=== PATIENT | male | born 1965 | race Caucasian/White ===

== ENCOUNTER 2022-07-05 08:17 | Inpatient (IN) ==
--- NOTE | 2022-07-05 08:25 | Emergency Department Note ---
Impression & Plan Fatigue, Breathlessness, Pleural effusion ED Provider Note Provider: Meet Godfrey MD DATE OF SERVICE: 07/05/2022 CHIEF COMPLAINT: Shortness of breath HISTORY OF PRESENT ILLNESS: Patient is a 56-year-old gentleman history of hyperlipidemia and diabetes presenting today stating that He is feeling much more fatigued and worn out. States he had a headache and this morning states he woke up and was still feeling unwell and having some wheezing. States lying in bed there are times where he could not breathe as well as normal not able to take a good deep breath and he feels congested. States he did have significant bout about 8 or 10 years ago of whooping cough but does not significantly coughing now. Some sinus drainage. Denies abdominal symptoms such as nausea vomiting or abdominal pain. Reports occasionally is been having little pain in his right mid to lower back into the right hip with some burning into the right thigh at times. 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 No recent travel. No leg swelling. No history of allergy issues, asthma, or recent travel. States his diabetes is well controlled on Trulicity. States symptoms now have been improving. Went to bed last night was not feeling too bad. No pleuritic chest pain but states does not feel like he can quite get a full deep breath. Denies severe myalgias or fever. No trauma reported. PAST MEDICAL HISTORY: As noted above MEDICATIONS: Reviewed home medications SOCIAL HISTORY: Works as a medical territory manager PHYSICAL EXAM: GENERAL: alert and oriented in no acute distress seated in the room Head: normocephalic and atraumatic EYES: No injection, discharge or icterus. NECK: Trachea midline. ENT: Mucous membranes pink and moist. LUNGS: Airway patent. No retractions. Breath sounds with very faint scattered e xpiratory wheeze HEART: Regular rate and rhythm. No chest wall tenderness ABDOMEN: Soft and non-tender, without guarding or rebound. SKIN: Acyanotic, warm, dry, without rashes EXTREMITIES: Without swelling, tenderness or deformity NEUROLOGICAL: No focal deficits. No aphasia. No facial droop or slurred speech. Ambulatory. EK bpm normal sinus rhythm. No PVC or PAC. Limited baseline artifact in V1. No acute ST segment elevation or depression noted with a QTc of 477. CONTINUOUS CARDIAC MONITORING: was ordered and showed a heart rate of 90s-110s bpm in normal sinus rhythm to sinus tachycardia Patient's laboratory studies and imaging reviewed. Differential includes Reactive airway disease, pneumonia, pneumothorax, COPD, CHF, infections, cardiac ischemia, pulmonary embolism, musculoskeletal, gastrointestinal, as well as other pathologies. IMPRESSION/MEDICAL DECISION MAKING: Planes of feeling some fatigue yesterday and then onset of shortness of breath earlier today. Headache yesterday but not really today. Denies swelling or recent travel. Not significantly hypoxic here. No significant calf tenderness and lower suspicion for DVT and VTE. Sounds infectious in nature. Slight wheezing given a DuoNeb. Basic blood work checked including COVID test in addition to EKG and troponin. Seems less likely to be cardiac in nature not having chest pain. Benign abdomen on exam and doubt acute intra-abdominal pathology. No significant leg swelling or history of CHF reported by the patient. Chest x-ray by my review and radiology does question some possible pulmonary edema versus interstitial pneumonia. Present history seems a bit more infectious in nature but blood work here without significant anemia or leukocytosis noted. No significant differential shift noted. No significant renal dysfunction or severe electrolyte abnormality noted with minimally elevated glucose likely related to his underlying diabetes. No signs of significant tendinitis. High sensitive troponin does return mildly elevated at 21.3. Discussed these findings with the patient. I did not give any significant risk factors for PE at this point. CTA of the chest without evidence of PE but some small effusions again question some component of CHF. Do have some suspicion given the x-ray findings this could represent more of a developing CHF rather than infectious in nature. Again has been working somewhat fervently at 2 jobs according to him. Does report some increased fatigue and head pressure and evaluation of breathing is again trending better. Denies any chest pain. Yest erday at work again he had to sit down several times that he just felt too fatigued. EKG without acute STEMI but no comparisons for prior possible septal infarct noted. Troponin just above normal. Question if he is got a chronic level here versus developing a little bit of left-sided heart failure. In discussion with him as he is feeling quite fatigued and with the x-ray findings discussed with the hospitalist observation. Delta troponin ordered and returned slightly low at 17 is against acute cardiac injury. DIAGNOSIS: Shortness of breath, fatigue, pleural effusions DISPOSITION: Evaluated by the hospitalist Patient was agreeable with this plan. Past Med/Surg History Medical History DM2 (diabetes mellitus, type 2) Fatigue HLD (hyperlipidemia) Morbid obesity with BMI of 50.0-59.9, adult No pertinent past medical history Shortness of breath Surgical History No pertinent past surgical history Social History Smoking Status: Never smoker Second Hand Exposure: No; Do You Dip or Chew Tobacco: No; Tobacco Cessation Education Requested by Patient: No Hx Alcohol Use: Yes Alcohol type: beer Hx Substance Use: No Preferred Language: Kyrgyz Communication Ability: Effective Electronic Test Technician Required: No Beliefs That Will Affect Care: None Current Living Situation: Alone current occupational status: employed Other Information That Helps Us Care for You: No Feels Safe at Home: No Is there a partner from a previous relationship who is making you feel unsafe now?: No Any Concerns about Your Family Situation: No Would You Like to Speak to Someone About Your Situation: No Safety Concerns: Feels Safe At This Time Assistive Devices: Glasses Allergies Allergies Allergy/AdvReac Type Severity Reaction Status Date / Time kiwi Allergy Mild Mouth Verified 07/05/22 10:50 Itchiness Home Meds Home Medications Medication Instructions Recorded Confirmed acetaminophen 500 mg tablet 500 mg PO Q6H PRN Pain 03/04/20 07/05/22 (Tylenol Extra Strength) atorvastatin 20 mg tablet 20 mg PO HS 07/05/22 07/05/22 dulaglutide 1.5 mg/0.5 mL 1.5 mg subcut Q7D 07/05/22 07/05/22 subcutaneous pen injector (Trulicity) metformin 500 mg tablet,extended 1,000 mg PO BIDWMEAL 07/05/22 07/05/22 release 24 hr naproxen sodium 220 mg tablet 220 mg PO Q12H PRN Pain 07/05/22 07/05/22 (Aleve) Results & Data (ED) Vital Signs Vital Signs - 24 hr 07/05/22 08:20 07/05/22 08:57 07/05/22 09:19 Temperature 36.3 C L Temperature Source Temporal Artery Scan Pulse Rate 105 H 98 H Pulse Rate [Apical] 99 H Pulse Rate from SpO2 Sensor Pulse Rhythm Regular Pulse Strength Normal Respiratory Rate 22 16 Respiratory Effort / Characteristics Non-Labored Spontaneous Non-Labored Spontaneous Respiratory Depth Normal Respiratory Pattern Regular Blood Pressure 139/90 Blood Pressure Mean 106 Blood Pressure Position Sitting Pulse Oximetry 94 99 Oxygen Delivery Method Room Air Room Air Sepsis Recent Fever Within 48 Hours No Sepsis New/Unexplained Change in Mental Status No Sepsis Action Taken by Nursing No Action Required 07/05/22 11:04 Temperature Temperature Source Pulse Rate 108 H Pulse Rate [Apical] Pulse Rate from SpO2 Sensor 107 H Pulse Rhythm Pulse Strength Respiratory Rate 20 Respiratory Effort / Characteristics Respiratory Depth Respiratory Pattern Blood Pressure 120/83 Blood Pressure Mean 95 Blood Pressure Position Pulse Oximetry 94 Oxygen Delivery Method Room Air Sepsis Recent Fever Within 48 Hours Sepsis New/Unexplained Change in Mental Status Sepsis Action Taken by Nursing Laboratory Data 07/05/22 09:02 07/05/22 09:02 Lab Results 07/05/22 07/05/22 07/05/22 Range/Units 09:02 09:02 09:02 WBC 6.82 (4.8-10.8) K/ul RBC 4.79 (4.70-6.10) M/uL Hgb 14.2 (14.0-18.0) g/dl Hct 42.3 (42.0-52.0) % MCV 88.3 (80.0-100.0) fL MCH 29.6 (25.0-34.0) pg MCHC 33.6 (32.0-36.0) g/dL RDW Std Deviation 41.6 (36.4-46.3) fL RDW Coeff of Karlos 12.8 (11.5-14.5) % Plt Count 211 (130-400) K/uL MPV 10.1 (9.4-12.4) fL Immature Gran % (Auto) 0.4 % Neut % (Auto) 49.6 % Lymph % (Auto) 40.8 % [place] % (Auto) 6.9 % Eos % (Auto) 1.6 % Baso % (Auto) 0.7 % Neut # (Auto) 3.38 (1.40-6.50) K/uL Lymph # (Auto) 2.78 (1.2-3.4) K/uL [place] # (Auto) 0.47 (0.11-0.59) K/uL Eos # (Auto) 0.11 (0-0.50) K/uL Baso # (Auto) 0.05 (0-0.2) K/uL Immature Gran # (Auto) 0.03 (0.01-0.20) K/uL Sodium 138 (136-145) mmol/L Potassium 3.7 (3.5-5.1) mmol/L Chloride 104 (98-107) mmol/L Carbon Dioxide 27 (21-32) mmol/L Anion Gap 7 (3-11) BUN 13 (6-23) mg/dl Creatinine 0.50 L (0.6-1.4) mg/dl Est Cr Clr Drug Dosing 200.9 ml/min Est GFR ( Amer) 141.4 ml/min Est GFR (Non-Af Amer) 122.0 ml/min BUN/Creatinine Ratio 26.0 H (10-20) Glucose 129 H (70-99(Fasting)) mg/dl Calcium 8.8 (8.6-10.3) mg/dl Magnesium 1.9 (1.7-2.4) mg/dl Total Bilirubin 0.8 (0.2-1.0) mg/dl AST 16 (13-39) U/L ALT 16 (7-52) U/L Alkaline Phosphatase 59 (34-104) U/L Troponin I High Sens 21.3 H (0-20) pg/ml Total Protein 7.1 (6.0-8.3) gm/dl Albumin 4.3 (3.4-5.0) gm/dl Globulin 2.8 (2.5-4.0) gm/dl Albumin/Globulin Ratio 1.5 (0.9-2) SARS-CoV-2 (PCR) NEGATIVE (Negative) Influenza Type A (PCR) Negative (Neg) Influenza Type B (PCR) Negative (Neg) RSV (RT-PCR) Negative (Neg) Administered Medications Discontinued Medications Albuterol (Albut/Ipratrop 3mg/0.5mg Neb 3 Ml Vial) 12 ml NEB ONE ONE; Protocol Stop: 07/05/22 08:37 Last Admin: 07/05/22 08:57 Dose: 12 ml Documented By: JBHenrietta Furosemide (Furosemide Inj 20 Mg/2 Ml Vial) 20 mg IV ONE ONE Stop: 07/05/22 13:16 Last Admin: 07/05/22 13:27 Dose: 20 mg Documented By: NICK Ioversol (Optiray 320 500ml) 114 ml IV ONCE ONE Stop: 07/05/22 11:51 Last Admin: 07/05/22 11:53 Dose: 114 ml Documented By: MARGARET Imaging Data Radiologist's Impression: Chest X-Ray 07/05/22 08:25 XR chest 1V portable HISTORY: 56 years-old Male Dyspnea acute shortness of breath COMPARISON: 09/20/2007 TECHNIQUE: AP view of the chest FINDINGS: Cardiac silhouette is enlarged. Pulmonary vascular congestion with interstitial coarsening. No pneumothorax or large pleural effusion. Degenerative changes of the shoulders and spine. Left shoulder rotator cuff calcific tendinosis. IMPRESSION: Cardiomegaly with pulmonary vascular congestion and reticular interstitial opacities suggestive of pulmonary edema. Interstitial pneumonia could appear similarly. ACT 112: Negative or not required by law. The above report was generated using voice recognition software. It may contain grammatical, syntax or spelling errors. Electronically signed by: Irvin Dong M.D. 07/05/2022 9:00 AM Chest CTA 07/05/22 10:43 CT angio chest PE protocol CT DOSE: 976.63 mGy.cm HISTORY: 56 years-old Male with PE, SOB, tachy, cxr ?fluid. Acute shortness of breath TECHNIQUE: Multiple CTA images of the chest were obtained after the intravenous administration of 114 ml Optiray. Coronal and sagittal MIPS were obtained from the axial data set and were submitted for review. All measurements were obtained according to NASCET criteria. A dose lowering technique was utilized adhering to the principles of ALARA. COMPARISON: Chest radiograph of same day FINDINGS: CTA: Moderate cardiomegaly without pericardial effusion. No thoracic aortic aneurysm or dissection. Patency of the imaged great vessels. No pulmonary emboli identified. CT CHEST: No thyroid nodule or lymphadenopathy. Small left greater than right pleural effusions. No pneumothorax. Intralobular and bronchial wall thickening. Mild dependent bibasilar consolidation. No suspicious pulmonary nodules or masses. Mild nonspecific mid to distal esophageal wall thickening. The liver appears prominent in size. Unremarkable soft tissues. No acute fracture. IMPRESSION: 1. Cardiomegaly with interstitial pulmonary edema. 2. Small pleural effusions with dependent bibasilar consolidation suggestive of compressive atelectasis. 3. No pulmonary emboli identified. ACT 112: Negative or not required by law. The above report was generated using voice recognition software. It may contain grammatical, syntax or spelling errors. Electronically signed by: Irvin Dong M.D. 07/05/2022 12:28 PM Discharge Plan Visit Data Chief Complaint: Shortness of Breath/Dyspnea Stated Complaint: SOB ED Provider: Meet Godfrey Discharge Problem: Fatigue, Breathlessness, Pleural effusion Patient Disposition: Admitted As Inpatient Discharge Instructions Interventions: ED Discharge Assessment Last Done: 07/05/22 15:00
[2022-07-05] MEDS ORDERED: ALBUT/IPRATROP 3MG/0.5MG NEB 3 ML VIAL NEB ONE (08:36)
--- NOTE | 2022-07-05 09:01 | XRay Report ---
XR chest 1V portable HISTORY: 56 years-old Male Dyspnea acute shortness of breath COMPARISON: 09/20/2007 TECHNIQUE: AP view of the chest FINDINGS: Cardiac silhouette is enlarged. Pulmonary vascular congestion with interstitial coarsening. No pneumo thorax or large pleural effusion. Degenerative changes of the shoulders and spine. Left shoulder rota tor cuff calcific tendinosis. IMPRESSION: Cardiomegaly with pulmonary vascular congestion and reticular interstitial opacities sugg estive of pulmonary edema. Interstitial pneumonia could appear similarly. ACT 112: Negative or not required by law. The above report was generated using voice recognition software. It may contain grammatical, syntax o r spelling errors. Electronically signed by: Irvin Dong M.D. 07/05/2022 9:00 AM
[2022-07-05 09:38] LABS: Basophils # (auto) 0.05 K/uL (0-0.2); Basophils % (auto) 0.7 %; Eosinophils # (auto) 0.11 K/uL (0-0.50); Eosinophils % (auto) 1.6 %; Hematocrit (blood only) 42.3 % (42.0-52.0); Hemoglobin 14.2 g/dl (14.0-18.0); Immature Granulocytes # (auto) 0.03 K/uL (0.01-0.20); Immature Granulocytes % (auto) 0.4 %; Lymphocytes # (auto) 2.78 K/uL (1.2-3.4); Lymphocytes % (auto) 40.8 %; Mean Corpuscular Hemoglobin 29.6 pg (25.0-34.0); Mean Corpuscular Hgb Conc 33.6 g/dL (32.0-36.0); Mean Corpuscular Volume 88.3 fL (80.0-100.0); Mean Platelet Volume 10.1 fL (9.4-12.4); Monocytes # (auto) 0.47 K/uL (0.11-0.59); Monocytes % (auto) 6.9 %; Neutrophils # (auto) 3.38 K/uL (1.40-6.50); Neutrophils % (auto) 49.6 %; Platelet Count 211 K/uL (130-400); RDW Coefficient of Variation 12.8 % (11.5-14.5); RDW Standard Deviation 41.6 fL (36.4-46.3); Red Blood Count 4.79 M/uL (4.70-6.10); White Blood Count 6.82 K/ul (4.8-10.8)
[2022-07-05 09:55] LABS: Albumin Globulin Ratio 1.5 (0.9-2); Albumin Level 4.3 gm/dl (3.4-5.0); Bilirubin,Total 0.8 mg/dl (0.2-1.0); Calcium 8.8 mg/dl (8.6-10.3); Creatinine Clr Calc Pharmacy 200.9 ml/min; Est GFR (African American) 141.4 ml/min; Globulin 2.8 gm/dl (2.5-4.0); Magnesium 1.9 mg/dl (1.7-2.4); Potassium 3.7 mmol/L (3.5-5.1); Total Protein 7.1 gm/dl (6.0-8.3)
[2022-07-05 10:01] LABS: Troponin I High Sensitivity 21.3 pg/ml (0-20)
[2022-07-05 10:19] LABS: Influenza A virus by PCR Negative (Neg); Influenza B virus by PCR Negative (Neg); RSV by PCR Negative (Neg); SARS CoV2 RNA(COVID-19) Ceph NEGATIVE (Negative)
--- NOTE | 2022-07-05 11:13 | History & Physical Report ---
Date of Service July 05, 2022 Assessment & Plan (1) Fatigue: (2) HLD (hyperlipidemia): (3) DM2 (diabetes mellitus, type 2): (4) Pleural effusion: (5) Shortness of breath: (6) Bicuspid aortic valve: (7) Severe aortic stenosis: (8) Acute heart failure with preserved ejection fraction: Plan 56 year old presents with SOB and fatigue that has been going on x a few days. Continuing PMH DM2 and HLD. CXR vascular congestion. Chest CTA negative for PE, but pleural effusions. Mild Tropnin bump, audible murmur. Will obtain fatigue lab work up, ECHO, repeat EKG and specialist consult as necessary. SOB: Fatigue: Started this AM at 0700; neb tx x1 in ED administered; SOB resolved Grade IV/ LSB murmur auscultated Chest Xray: Cardiomegaly with pulmonary vascular congestion and reticular interstitial opacities suggestive of pulmonary edema. Interstitial pneumonia could appear similarly. Chest CTA: Cardiomegaly with interstitial pulmonary edema, pleural effusions with dependent bibasilar consolidation suggestive of compressive atelectasis, Negative for PE. Trop 21.3; repeat x1 17.0 No leukocytosis or electrolyte abnormalities; will check Phos EKG tachycardic with ? septal infarct. No comparison. Repeat in AM or PRN ECHO ordered; no baseline in EMR Link No chest pain Check Vitamin D, Vitamin B12, ESR, CRP Consider Lasix dose HFpEF: Severe Aortic Stenosis: ECHO performed today. EF 60-65%, severe , no pericardial effusion Cardiology consult placed and discussed via [place] Text HLD: 01/2022: TG 2001, HDL 51, LDL 76 Repeat Lipid panel today: TG 115, LDL 52, HDL 53 Takes Atorvastatin; continue DM2: 01/2022: A1C 14; recheck today 6.6 Takes Trulicity and Metformin; Hold while here and place on FSBS ACHS SSI while inpt Started Trulicity Aug or Apr this year. Has had glucose levels in 400-500 range prior to starting Trulicity Check UA Disposition: PCP: Dr. Soares Code Status: Full Code VTe Prophylaxis: Lovenox SQ I spent a total of 88 minutes coordinating, documenting, and providing care for this patient excluding time spent in the performance of separately billed services. All of the aforementioned completed while collaborating with the assigned attending physician for a full treatment plan. Please see their addendum for further details. History of Present Illness Chief Complaint: fatigue Primary Care Provider: Dustin Soares MD Patient states that he started to feel wipes out yesterday where he had to sit a few times throughout the day. This morning, he started to have difficulty taking a deep breath around 0700 so he came to the ED; he received a neb tx and his breathing feels resolved. Pt denies any recent sickness since 09/2021 when he had Covid. He feels that he has been pushing himself more with working longer hours. Reports that he is waking up every few hours but falls back to sleep. Reports pain in hip and back that he describes as neuropathic. He took Alive last night which helped. Patient does report pain in his right hip with some neuropathy that has been chronic over the past few months. Pt denies tobacco use, alcohol use, recreational drug use. 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 Patient reports his appetite and p.o. intake are normal for him Family history: Dad 2013 SBO and AMI. Mother has HTN Pt denies PARK, anxiety or depression, dizziness, chest pain, palpitations,N/V/D, visual or auditory changes, abdominal pain, urine or bowel changes, hematochezia, recent falls or trauma. On examination, this patient is an obese male and AAOx3. Able to hold meaningful conversation and in no apparent distress. Patient does have an audible Grade IV/ murmur that I heard anterior left sternal border. He did say that he was told he had a murmur before. In review of EMR Link Pt does not have a reported ECHO; but he is a high risk cardiac patient with family history and personal HLD and DM2. No leukocytosis, initial troponin 21.3; will trend. Patient is high risk factor of ACS with tachycardia and possible septal changes noted on EKG, along with audible murmur. Patient agreeable to have inpatient admission with further evaluation and management. Please see A/P for further details. Allergies Allergy/AdvReac Type Severity Reaction Status Date / Time kiwi Allergy Mild Mouth Verified 07/05/22 10:50 Itchiness Home Medications Medication Instructions Recorded Confirmed Type acetaminophen 500 mg tablet 500 mg PO Q6H PRN Pain 12/19/20 04/21/23 History (Tylenol Extra Strength) atorvastatin 20 mg tablet 20 mg PO HS 07/05/22 07/05/22 History dulaglutide 1.5 mg/0.5 mL 1.5 mg subcut Q7D 07/05/22 07/05/22 History subcutaneous pen injector (Trulicity) metformin 500 mg tablet,extended 1,000 mg PO BIDWMEAL 07/05/22 07/05/22 History release 24 hr furosemide 20 mg tablet (Lasix) 20 mg PO DAILY #30 tabs 07/08/22 Rx metoprolol tartrate 25 mg tablet 12.5 mg PO BID 30 days #30 tabs 07/08/22 Rx Past Med/Surg History Medical History DM2 (diabetes mellitus, type 2) Fatigue HLD (hyperlipidemia) Morbid obesity with BMI of 50.0-59.9, adult No pertinent past medical history Shortness of breath Surgical History No pertinent past surgical history Social History Smoking Status: Never smoker Second Hand Exposure: No; Do You Dip or Chew Tobacco: No; Hx Alcohol Use: Yes Alcohol type: beer Hx Substance Use: No Preferred Language: Occitan Communication Ability: Effective Visual Coordinator Required: No Beliefs That Will Affect Care: None Current Living Situation: Alone current occupational status: employed Feels Safe at Home: No Is there a partner from a previous relationship who is making you feel unsafe now?: No Assistive Devices: Glasses Review of Systems Review of Systems: Neuro: (-) Falls, trauma, slurred speech (+) fatigue HEENT: (-) PARK, dizziness, dysphagia, visual or auditory changes CV: (-) CP, palpitations, swelling Resp: (+) SOB GI: (-) appetite changes, N/V/D, bowel changes : (-) urinary changes Skin: (-) rashes Psych: (-) anxiety, depression Physical Exam Physical Exam: Neuro: AAOx4, PERRLA, no aphagia, memory changes, CNII-XII grossly intact HEENT: head normocephalic, moist mucus membranes CV: S1/S2, (+) M Grade IV/ left sternal border. (-) G/R, (-) edema, cap refill < 3 seconds. euvolemic Resp: Lungs CTA in all bustamante. On RA GI: Abdomen S/NT/ND, Ax4 bowel sounds, (-) CVA tenderness Musculoskeletal: 5/5 B/L UE strength, 5/5 B/L LE strength. No gait disturbance Skin: (-) rashes , (-) erythema. Psych: euthymic mood Results & Data Results & Data Vital Signs (Past 12 Hours) Vital Signs Temp Pulse Pulse Resp BP Pulse Ox O2 Del Method 07/05/22 11:04 108 H 20 120/83 94 Room Air 07/05/22 09:19 98 H 07/05/22 08:57 99 H 16 99 Room Air 07/05/22 08:20 36.3 C L 105 H 22 139/90 94 Room Air Laboratory Results Short CBC 07/05/22 Range/Units 09:02 WBC 6.82 (4.8-10.8) K/ul Hgb 14.2 (14.0-18.0) g/dl Hct 42.3 (42.0-52.0) % Plt Count 211 (130-400) K/uL BMP 07/05/22 09:02 Sodium 138 Potassium 3.7 Chloride 104 Carbon Dioxide 27 BUN 13 Creatinine 0.50 L Glucose 129 H Calcium 8.8 Liver Function 07/05/22 Range/Units 09:02 Total Bilirubin 0.8 (0.2-1.0) mg/dl AST 16 (13-39) U/L ALT 16 (7-52) U/L Alkaline Phosphatase 59 (34-104) U/L Albumin 4.3 (3.4-5.0) gm/dl Diagnostic Findings Chest X-Ray 07/05/22 08:25 XR chest 1V portable HISTORY: 56 years-old Male Dyspnea acute shortness of breath COMPARISON: 09/20/2007 TECHNIQUE: AP view of the chest FINDINGS: Cardiac silhouette is enlarged. Pulmonary vascular congestion with interstitial coarsening. No pneumothorax or large pleural effusion. Degenerative changes of the shoulders and spine. Left shoulder rotator cuff calcific tendinosis. IMPRESSION: Cardiomegaly with pulmonary vascular congestion and reticular interstitial opacities suggestive of pulmonary edema. Interstitial pneumonia could appear similarly. ACT 112: Negative or not required by law. The above report was generated using voice recognition software. It may contain grammatical, syntax or spelling errors. Electronically signed by: Irvin Dong M.D. 07/05/2022 9:00 AM Code Status & VTE Plan Code Status Full Code in the event of cardiac or respiratory arrest VTE Prophylaxis Plan VTE Prophylaxis will be ordered: Yes Supervising Physician Co-Signing Physician Notes Pt was seen and examined. Agreed with Jena ALANIS exam, assessment and plan. 56 yo Male with PMH of diabetes, dyslipidemia, morbid obesity present to the ED with C/O worsening SOB and fatigue. He stated SOB worsening with exertion. Received neb treatment in the ER that improved his breathing. On exam he is not in any acute distress, + wheezing, +murmur, no edema. CXR on admission showed cardiomegaly with pulmonary vascular congestion and reticular interstitial opacities suggestive of pulmonary edema. CTA chest showed no PE, Cardiomegaly with interstitial pulmonary edema. Small pleural effusions with dependent bibasilar consolidation suggestive of compressive atelectasis. Will give lasix 20mg IVx1. Echo done today showed severe aortic stenosis. EF 60-65%. no pericardial effusion. Will repeat CXR in am. Will get resting Echo. Will consult cardiology. Continue monitor closely in telemetry. MD Ian
[2022-07-05] MEDS ORDERED: ALUMINUM/MAGNESIUM SUSP 30 ML UDC PO PRN (11:17)
[2022-07-05] MEDS ORDERED: POLYETHYLENE (MIRALAX) 17 GM PACK PO PRN (11:17)
[2022-07-05] MEDS ORDERED: ACETAMINOPHEN 325 MG TAB PO PRN (11:17)
[2022-07-05] MEDS ORDERED: MAGNESIUM HYDROXIDE SUSP 30 ML UDC PO PRN (11:17)
[2022-07-05] MEDS ORDERED: ONDANSETRON INJ 2 MG/ML 2 ML VIAL IV PRN (11:17)
[2022-07-05] MEDS ORDERED: OPTIRAY 320 500ml IV ONE (11:50)
[2022-07-05 12:06] LABS: Chol HDL Ratio 2.4 (0-5)
[2022-07-05 12:22] LABS: Estimated Average Glucose 143 mg/dl; Hemoglobin A1C 6.6 % (4.5-5.6)
--- NOTE | 2022-07-05 12:29 | CT Scan Report ---
CT angio chest PE protocol CT DOSE: 976.63 mGy.cm HISTORY: 56 years-old Male with PE, SOB, tachy, cxr ?fluid. Acute shortness of breath TECHNIQUE: Multiple CTA images of the chest were obtained after the intravenous administration of 114 ml Optiray. Coronal and sagittal MIPS were obtained from the axial data set and were submitted for review. All measurements were obtained according to NASCET criteria. A dose lowering technique was u tilized adhering to the principles of ALARA. COMPARISON: Chest radiograph of same day FINDINGS: CTA: Moderate cardiomegaly without pericardial effusion. No thoracic aortic aneurysm or dissection. Patenc y of the imaged great vessels. No pulmonary emboli identified. CT CHEST: No thyroid nodule or lymphadenopathy. Small left greater than right pleural effusions. No pneumothora x. Intralobular and bronchial wall thickening. Mild dependent bibasilar consolidation. No suspicious pulmonary nodules or masses. Mild nonspecific mid to distal esophageal wall thickening. The liver appears prominent in size. Unrem arkable soft tissues. No acute fracture. IMPRESSION: 1. Cardiomegaly with interstitial pulmonary edema. 2. Small pleural effusions with dependent bibasilar consolidation suggestive of compressive atelectas is. 3. No pulmonary emboli identified. ACT 112: Negative or not required by law. The above report was generated using voice recognition software. It may contain grammatical, syntax o r spelling errors. Electronically signed by: Irvin Dong M.D. 07/05/2022 12:28 PM
[2022-07-05] MEDS ORDERED: GLUCOSE 10 TAB/TUBE PO PRN (12:51)
[2022-07-05] MEDS ORDERED: GLUCAGON FOR INJ 1 MG VIAL SQ PRN (12:51)
[2022-07-05] MEDS ORDERED: GLUCOSE 40% GEL 15 GM TUBE PO PRN (12:51)
[2022-07-05] MEDS ORDERED: CARBOHYDRATES FOR HYPOGLYCEMIA PO PRN (12:51)
[2022-07-05] MEDS ORDERED: DEXTROSE 50% 50 ML SYRINGE IV PRN (12:51)
[2022-07-05] MEDS ORDERED: PHARMACY GLYCEMIC MGMT CONSULT PRN (12:51)
[2022-07-05] MEDS ORDERED: INSULIN ASPART PER UNIT CHARGE SC SCH (13:15)
[2022-07-05] MEDS ORDERED: FUROSEMIDE INJ 20 MG/2 ML VIAL IV ONE (13:15)
[2022-07-05 14:45] LABS: Vitamin D, 25 Hydrox 17.7 ng/ml (30-100)
--- NOTE | 2022-07-05 14:54 | Cardiology Consultation ---
Date of Consultation July 05, 2022 Assessment & Plan (1) Severe aortic stenosis: (2) Acute heart failure with preserved ejection fraction: (3) Bicuspid aortic valve: (4) Pleural effusion: (5) HLD (hyperlipidemia): (6) DM2 (diabetes mellitus, type 2): Plan 56-year-old male admitted with acute decompensated heart failure. Echocardiogram demonstrating preserved LV systolic function with severe aortic stenosis and a bicuspid aortic valve (new diagnosis). Recommend diuresis with IV Lasix. Monitor fluid balance, daily weight, GFR, and electrolytes. I had a long conversation with the patient regarding the natural history and pathophysiology of severe aortic valve stenosis in the setting of bicuspid a aortic valve. His ascending aorta was not well visualized on echocardiogram. CT of the chest will be necessary for further evaluation. Once he has diuresed and optimized from a heart failure perspective, recommend cardiac catheterization with coronary angiography. We briefly discussed valve replacement options including SAVR with bioprosthetic valve, SAVR with me chanical prosthesis, and TAVR. All questions answered to patient's satisfaction. He is agreeable to remain hospitalized for further medical treatment and evaluation of his valvular heart disease. Thank you for allow me to participate in the care of your patient. 56 minutes critical care time spent evaluating patient, reviewing data, discussing assessment and plan with patient. History of Present Illness Reason for Consultation: Shortness of breath, severe aortic valve stenosis Requesting Physician: Jena ALANIS Attending Physician: Dr. Finney History of Present Illness 56-year-old presents to the emergency department with shortness of breath and fatigue. 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 Denies any functional limitations while working, however, notes significant fatigue when he finishes his shift. This morning, he awoke and was moving around his home, checking his phone, when he became acutely short of breath. He attempted to change position which did not alleviate his symptoms. The shortness of breath was progressive prompting him to proceed to the ER. In the emergency department he was treated with a nebulizer with mild improvement. Chest x-ray and CTA consistent with pulmonary vascular congestion suggestive of congestive heart failure. Echocardiogram demonstrating bicuspid aortic valve with severe aortic valve stenosis (new diagnosis). Patient reports history of heart murmur dating back many years, although, no echocardiogram on record. Denies exertional chest pain, lightheadedness, dizziness, syncope, or near syncope. Reports chronic, mild dyspnea on exertion with onset of resting shortness of breath this AM. No fever, chills, cough, sputum production, or sick contacts. Denies orthopnea or PND. Reports gradual weight gain over the past 2-3 weeks. No pedal edema. Allergies Allergy/AdvReac Type Severity Reaction Status Date / Time kiwi Allergy Mild Mouth Verified 07/05/22 10:50 Itchiness Home Medications Medication Instructions Recorded Confirmed Type acetaminophen 500 mg tablet 500 mg PO Q6H PRN Pain 03/04/20 07/05/22 History (Tylenol Extra Strength) atorvastatin 20 mg tablet 20 mg PO HS 07/05/22 07/05/22 History dulaglutide 1.5 mg/0.5 mL 1.5 mg subcut Q7D 07/05/22 07/05/22 History subcutaneous pen injector (Trulicity) metformin 500 mg tablet,extended 1,000 mg PO BIDWMEAL 07/05/22 07/05/22 History release 24 hr naproxen sodium 220 mg tablet 220 mg PO Q12H PRN Pain 07/05/22 07/05/22 History (Aleve) Patient History Medical History DM2 (diabetes mellitus, type 2) Fatigue HLD (hyperlipidemia) Morbid obesity with BMI of 50.0-59.9, adult No pertinent past medical history Shortness of breath Surgical History No pertinent past surgical history Social History Smoking Status: Never smoker Preferred Language: Bahraini current occupational status: employed Feels Safe at Home: Yes Review of Systems Review of Systems: All systems reviewed & are unremarkable except as noted in Subjective Physical Exam Constitutional: well nourished and + ill appearing; no acute distress Respiratory: able to speak in complete sentences (+ Conversational dyspnea) and + tachypneic Auscultation: + diminished lung sounds (Left base) and + rales (Bases bilateral); no rhonchi and no wheezes Cardiovascular: Rate/Rhythm: regular rate and regular rhythm Heart Sounds: normal S1 and + murmur (3/6 high-pitched, late peaking, systolic ejection); + abnormal S2 (Diminished) Vessels: radial pulses present; no JVD and no carotid bruit Extremities: no edema Gastrointestinal (Abdomen): Inspection/Auscultation: normal bowel sounds; abdomen not distended Percussion/Palpation: abdomen soft; abdomen nontender, no guarding and abdomen not rigid Neurologic: CN's II-XI intact bilaterally and moves all extremities; no focal motor deficits Psychiatric: A+Ox3, euthymic affect Results & Data Vital Signs (Past 12 Hours) Vital Signs Temp Pulse Pulse Resp BP BP Pulse Ox 07/05/22 11:31 108 H 18 129/83 94 07/05/22 12:10 104 H 18 129/83 94 07/05/22 12:10 104 H 18 94 07/05/22 11:04 108 H 20 120/83 94 07/05/22 09:19 98 H 07/05/22 08:57 99 H 16 99 07/05/22 08:20 36.3 C L 105 H 22 139/90 94 O2 Del Method 07/05/22 11:31 Room Air 07/05/22 12:10 Room Air 07/05/22 12:10 Room Air 07/05/22 11:04 Room Air 07/05/22 09:19 07/05/22 08:57 Room Air 07/05/22 08:20 Room Air Laboratory Results Cardiac Enzymes 07/05/22 07/05/22 07/05/22 Range/Units 09:02 11:24 13:15 AST 16 (13-39) U/L Troponin I High Sens 21.3 H 17.0 D (0-20) pg/ml B-Natriuretic Peptide 232 H (0-100) pg/ml Coagulation 07/05/22 Range/Units 13:15 B-Natriuretic Peptide 232 H (0-100) pg/ml Lipids 07/05/22 Range/Units 11:24 Triglycerides 115 (0-150) mg/dl Cholesterol 128 (0-200) mg/dl HDL Cholesterol 53 mg/dl Cholesterol/HDL Ratio 2.4 (0-5) CBC 07/05/22 Range/Units 09:02 WBC 6.82 (4.8-10.8) K/ul RBC 4.79 (4.70-6.10) M/uL Hgb 14.2 (14.0-18.0) g/dl Hct 42.3 (42.0-52.0) % Plt Count 211 (130-400) K/uL Neut # (Auto) 3.38 (1.40-6.50) K/uL Lymph # (Auto) 2.78 (1.2-3.4) K/uL Spink # (Auto) 0.47 (0.11-0.59) K/uL Eos # (Auto) 0.11 (0-0.50) K/uL Baso # (Auto) 0.05 (0-0.2) K/uL Comprehensive Metabolic Panel 07/05/22 Range/Units 09:02 Sodium 138 (136-145) mmol/L Potassium 3.7 (3.5-5.1) mmol/L Chloride 104 (98-107) mmol/L Carbon Dioxide 27 (21-32) mmol/L BUN 13 (6-23) mg/dl Creatinine 0.50 L (0.6-1.4) mg/dl Glucose 129 H (70-99(Fasting)) mg/dl Calcium 8.8 (8.6-10.3) mg/dl AST 16 (13-39) U/L ALT 16 (7-52) U/L Alkaline Phosphatase 59 (34-104) U/L Total Protein 7.1 (6.0-8.3) gm/dl Albumin 4.3 (3.4-5.0) gm/dl Intake and Output 07/04/22 07/05/22 07/05/22 22:59 06:59 14:59 Other: Weight 117 kg Weight Measurement Method Chair Scale Patient Weight 07/06/22 06:59 Weight 117 kg ECG Additional Comments: ECG: Normal sinus rhythm, cannot exclude age-indeterminate septal infarct.
[2022-07-05 14:57] LABS: Appearance Urine Clear (Clear); Bilirubin Urine Negative (Negative); Blood Urine Negative (Negative); Color Urine Yellow; Glucose Urine UA Negative (Negative); Ketones Urine Negative (Negative); Leukocyte Esterase Urine Negative (Negative); Nitrite Urine Negative (Negative); Protein Urine Negative (Negative); Specific Gravity Urine 1.022 (1.000-1.030); Urobilinogen Urine Negative (Negative)
[2022-07-05] MEDS: INSULIN ASPART PER UNIT CHARGE SC SCH ×2 (17:33→20:41)
--- NOTE | 2022-07-05 18:06 | Electrocardiogram Report ---
Test Reason : Blood Pressure : / mmHG Vent. Rate : 096 BPM Atrial Rate : 096 BPM P-R Int : 162 ms QRS Dur : 088 ms QT Int : 378 ms P-R-T Axes : 048 009 058 degrees QTc Int : 477 ms Normal sinus rhythm No previous ECGs available Confirmed by Troy Lee ([id number]) on 07/05/2022 6:06:36 PM Referred By: REFERRED SELF Confirmed By:Noah Lee
[2022-07-05] MEDS ORDERED: LANTUS PER UNIT CHARGE SQ SCH (21:00)
[2022-07-05] MEDS: ATORVASTATIN 20 MG TAB PO SCH (21:03)
[2022-07-06] MEDS ORDERED: PROMETHAZINE HCL 12.5 MG in SODIUM CHLORIDE 0.9% 50 ML IV PRN (06:13)
[2022-07-06] MEDS ORDERED: POTASSIUM CHLORIDE CRTAB 20 MEQ TABCR PO ONE (06:30)
[2022-07-06] MEDS ORDERED: MAGNESIUM SULFATE / D5W 1 GM/100 ML BAG IV ONE (06:30)
[2022-07-06 07:12] LABS: Hematocrit (blood only) 41.3 % (42.0-52.0); Hemoglobin 14.7 g/dl (14.0-18.0); Mean Corpuscular Hemoglobin 30.1 pg (25.0-34.0); Mean Corpuscular Hgb Conc 35.6 g/dL (32.0-36.0); Mean Corpuscular Volume 84.6 fL (80.0-100.0); Mean Platelet Volume 10.1 fL (9.4-12.4); Platelet Count 230 K/uL (130-400); RDW Coefficient of Variation 12.8 % (11.5-14.5); RDW Standard Deviation 38.9 fL (36.4-46.3); Red Blood Count 4.88 M/uL (4.70-6.10); White Blood Count 7.55 K/ul (4.8-10.8)
[2022-07-06 07:29] LABS: Albumin Globulin Ratio 1.5 (0.9-2); Albumin Level 4.3 gm/dl (3.4-5.0); BUN Creatinine Ratio 22.2 (10-20); Bilirubin,Total 0.8 mg/dl (0.2-1.0); Calcium 9.2 mg/dl (8.6-10.3); Creatinine Clr Calc Pharmacy 183.3 ml/min; Est GFR (Non-African American) 118.2 ml/min; Globulin 2.8 gm/dl (2.5-4.0); Phosphorus 4.2 mg/dl (2.5-4.9); Potassium 3.5 mmol/L (3.5-5.1); Total Protein 7.1 gm/dl (6.0-8.3)
--- NOTE | 2022-07-06 07:59 | XRay Report ---
XR chest 1V portable HISTORY: 56 years-old Male pleural effusions acute shortness of breath COMPARISON: CTA chest 07/05/2022 TECHNIQUE: AP view of the chest FINDINGS: Cardiac silhouette is enlarged. Trace pleural effusions. Pulmonary vascular congestion with mildly im proved pulmonary edema. No pneumothorax or lobar airspace consolidation. Bones appear grossly intact. IMPRESSION: 1. Cardiomegaly with mildly improved pulmonary edema. 2. Trace pleural effusions. ACT 112: Negative or not required by law. The above report was generated using voice recognition software. It may contain grammatical, syntax o r spelling errors. Electronically signed by: Irvin Dong M.D. 07/06/2022 7:57 AM
[2022-07-06] MEDS: ENOXAPARIN INJ 40 MG/0.4 ML SYR SQ SCH (08:38)
[2022-07-06] MEDS: INSULIN ASPART PER UNIT CHARGE SC SCH ×4 (08:39→21:12)
[2022-07-06] MEDS ORDERED: LANTUS PER UNIT CHARGE SC SCH (09:00)
[2022-07-06] MEDS ORDERED: FUROSEMIDE INJ 20 MG/2 ML VIAL IV SCH (09:45)
--- NOTE | 2022-07-06 13:12 | Electrocardiogram Report ---
Test Reason : Blood Pressure : / mmHG Vent. Rate : 091 BPM Atrial Rate : 091 BPM P-R Int : 158 ms QRS Dur : 096 ms QT Int : 392 ms P-R-T Axes : 046 008 058 degrees QTc Int : 482 ms Normal sinus rhythm Prolonged QT Abnormal ECG When compared with ECG of 05-JUL-2022 09:08, Criteria for Septal infarct are no longer Present Confirmed by Job Castellon ([id number]) on 07/06/2022 1:12:17 PM Referred By: REFERRED SELF Confirmed By:Job Castellon
--- NOTE | 2022-07-06 13:44 | Cardiology Progress Note ---
Date of Service July 06, 2022 Assessment & Plan (1) Severe aortic stenosis: (2) Acute heart failure with preserved ejection fraction: (3) Bicuspid aortic valve: (4) Pleural effusion: (5) HLD (hyperlipidemia): (6) DM2 (diabetes mellitus, type 2): Plan 56-year-old male admitted with acute decompensated heart failure. Echocardiogram demonstrating preserved LV systolic function with severe aortic stenosis and a bicuspid aortic valve (new diagnosis). lacement options including SAVR with bioprosthetic valve, SAVR with mechanical prosthesis, and TAVR. All questions answered to patient's satisfaction. He is agreeable to remain hospitalized for further medical treatment and evaluation of his valvular heart disease. 07/06/2022 Patient clinically improved with gentle diuresis. We will add low-dose beta- boni for heart rate control Carotid duplex to be ordered as part of preoperative assessment with anticipated need for aortic valve replacement Tentative plans for diagnostic coronary angiography Friday Admission and Anticipated Discharge Date Admission Date: July 05, 2022 Subjective Patient seen and examined, chart, medications, telemetry reviewed. Much more comfortable today after diuresis. Good oxygen saturation on room air heart rates trending to high 90s. No dizziness or lightheadedness no fevers or chills. No chest pain or discomfort. Review of Systems Review of Systems: All systems reviewed & are unremarkable except as noted in Subjective Physical Exam Constitutional: well nourished and + ill appearing; no acute distress ENMT: external ear and nose normal, oropharynx normal Neck: trachea midline, no thyromegaly Respiratory: no respiratory distress Auscultation: + diminished lung sounds (Left base) and + rales (Few); no rhonchi and no wheezes Cardiovascular: Rate/Rhythm: regular rate and regular rhythm Heart Sounds: normal S1 and + murmur (3/6 high-pitched, late peaking, systolic ejection); + abnormal S2 (Diminished) Vessels: radial pulses present; no JVD and no carotid bruit Extremities: + edema (Trace) Gastrointestinal (Abdomen): Inspection/Auscultation: normal bowel sounds; abdomen not distended Percussion/Palpation: abdomen soft; abdomen nontender, no guarding and abdomen not rigid Neurologic: CN's II-XI intact bilaterally and moves all extremities; no focal motor deficits Psychiatric: A+Ox3, euthymic affect Results & Data Vital Signs (Past 12 Hours) Vital Signs Temp Pulse Pulse Resp BP Pulse Ox O2 Del Method 07/06/22 11:31 36.9 C 96 H 18 126/88 97 Room Air 07/06/22 10:55 Room Air 07/06/22 07:37 36.4 C L 102 H 18 129/77 94 Room Air 07/06/22 03:25 36.7 C 95 H 16 117/77 95 Room Air Laboratory Results Laboratory Results - last 24 hr 07/05/22 07/05/22 07/05/22 13:15 13:15 13:15 WBC RBC Hgb Hct MCV MCH MCHC RDW Std Deviation RDW Coeff of Karlos Plt Count MPV ESR 11 Sodium Potassium Chloride Carbon Dioxide Anion Gap BUN Creatinine Est Cr Clr Drug Dosing Est GFR ( Amer) Est GFR (Non-Af Amer) BUN/Creatinine Ratio Glucose POC Glucose Calcium Phosphorus Total Bilirubin AST ALT Alkaline Phosphatase C-Reactive Protein < 0.50 B-Natriuretic Peptide 232 H Total Protein Albumin Globulin Albumin/Globulin Ratio Vitamin B12 25-OH Vitamin D Total Procalcitonin TSH Urine Color Urine Appearance Urine pH Ur Specific [place] Urine Protein Urine Glucose (UA) Urine Ketones Urine Blood Urine Nitrite Urine Bilirubin Urine Urobilinogen Ur Leukocyte Esterase 07/05/22 07/05/22 07/05/22 13:15 13:15 14:34 WBC RBC Hgb Hct MCV MCH MCHC RDW Std Deviation RDW Coeff of Karlos Plt Count MPV ESR Sodium Potassium Chloride Carbon Dioxide Anion Gap BUN Creatinine Est Cr Clr Drug Dosing Est GFR ( Amer) Est GFR (Non-Af Amer) BUN/Creatinine Ratio Glucose POC Glucose Calcium Phosphorus Total Bilirubin AST ALT Alkaline Phosphatase C-Reactive Protein B-Natriuretic Peptide Total Protein Albumin Globulin Albumin/Globulin Ratio Vitamin B12 270 25-OH Vitamin D Total 17.7 L Procalcitonin TSH 1.420 Urine Color Yellow Urine Appearance Clear Urine pH 7.0 Ur Specific [place] 1.022 Urine Protein Negative Urine Glucose (UA) Negative Urine Ketones Negative Urine Blood Negative Urine Nitrite Negative Urine Bilirubin Negative Urine Urobilinogen Negative Ur Leukocyte Esterase Negative 07/05/22 07/05/22 07/06/22 16:37 20:02 06:19 WBC 7.55 RBC 4.88 Hgb 14.7 Hct 41.3 L MCV 84.6 MCH 30.1 MCHC 35.6 RDW Std Deviation 38.9 RDW Coeff of Karlos 12.8 Plt Count 230 MPV 10.1 ESR Sodium Potassium Chloride Carbon Dioxide Anion Gap BUN Creatinine Est Cr Clr Drug Dosing Est GFR ( Amer) Est GFR (Non-Af Amer) BUN/Creatinine Ratio Glucose POC Glucose 109 H 180 H Calcium Phosphorus Total Bilirubin AST ALT Alkaline Phosphatase C-Reactive Protein B-Natriuretic Peptide Total Protein Albumin Globulin Albumin/Globulin Ratio Vitamin B12 25-OH Vitamin D Total Procalcitonin TSH Urine Color Urine Appearance Urine pH Ur Specific [place] Urine Protein Urine Glucose (UA) Urine Ketones Urine Blood Urine Nitrite Urine Bilirubin Urine Urobilinogen Ur Leukocyte Esterase 07/06/22 07/06/22 07/06/22 06:19 06:19 07:32 WBC RBC Hgb Hct MCV MCH MCHC RDW Std Deviation RDW Coeff of Karlos Plt Count MPV ESR Sodium 139 Potassium 3.5 Chloride 103 Carbon Dioxide 26 Anion Gap 10 BUN 12 Creatinine 0.54 L Est Cr Clr Drug Dosing 183.3 Est GFR ( Amer) 137.0 Est GFR (Non-Af Amer) 118.2 BUN/Creatinine Ratio 22.2 H Glucose 111 H POC Glucose 194 H Calcium 9.2 Phosphorus 4.2 Total Bilirubin 0.8 AST 17 ALT 16 Alkaline Phosphatase 58 C-Reactive Protein B-Natriuretic Peptide Total Protein 7.1 Albumin 4.3 Globulin 2.8 Albumin/Globulin Ratio 1.5 Vitamin B12 25-OH Vitamin D Total Procalcitonin < 0.05 TSH Urine Color Urine Appearance Urine pH Ur Specific [place] Urine Protein Urine Glucose (UA) Urine Ketones Urine Blood Urine Nitrite Urine Bilirubin Urine Urobilinogen Ur Leukocyte Esterase 07/06/22 11:44 WBC RBC Hgb Hct MCV MCH MCHC RDW Std Deviation RDW Coeff of Karlos Plt Count MPV ESR Sodium Potassium Chloride Carbon Dioxide Anion Gap BUN Creatinine Est Cr Clr Drug Dosing Est GFR ( Amer) Est GFR (Non-Af Amer) BUN/Creatinine Ratio Glucose POC Glucose 108 H Calcium Phosphorus Total Bilirubin AST ALT Alkaline Phosphatase C-Reactive Protein B-Natriuretic Peptide Total Protein Albumin Globulin Albumin/Globulin Ratio Vitamin B12 25-OH Vitamin D Total Procalcitonin TSH Urine Color Urine Appearance Urine pH Ur Specific [place] Urine Protein Urine Glucose (UA) Urine Ketones Urine Blood Urine Nitrite Urine Bilirubin Urine Urobilinogen Ur Leukocyte Esterase
--- NOTE | 2022-07-06 14:26 | Pharmacy Report ---
Pharmacy Glycemic Short Note 2 - Date of Service July 06, 2022 - Glycemic Short BSG Results (Last 24 hours): 07/05/22 07/05/22 07/06/22 16:37 20:02 06:19 Glucose 111 H POC Glucose 109 H 180 H 07/06/22 07/06/22 07:32 11:44 Glucose POC Glucose 194 H 108 H OUTPATIENT ANTIDIABETIC REGIMEN: * Trulicity 1.5 mg SC weekly (Friday) * Metformin 1000 mg PO BIDM HbA1c: 6.6% (07/05/22) ASSESSMENT: * GIANNA is a 56 year old male who presented to [facility] ED on 07/05 with complaints of shortness of breath and fatigue secondary to acute decompensation of HF * Well-controlled T2DM with GLP-1 and metformin * Fasting BSG elevated at 194 mg/dL today (received only 5 units of rapid-acting insulin yesterday) * Will give conservative basal dose today in addition to Novolog PLAN FOR INPATIENT GLYCEMIC CONTROL: * Hold outpatient oral diabetes medications * Basal insulin * Lantus 10 units SC daily * Bolus insulin * NovoLog per scale ACHS or Q6hrs while NPO * Goal Range: Low 110 mg/dL - High 140 mg/dL * Correction Factor: 30 mg/dL/unit * Nutritional / Prandial insulin per carb ratio of 1 unit per 10 grams CHO consumed
--- NOTE | 2022-07-06 16:13 | Hospitalist Progress Note ---
Date of Service July 06, 2022 Assessment & Plan (1) Fatigue: (2) HLD (hyperlipidemia): (3) DM2 (diabetes mellitus, type 2): (4) Pleural effusion: (5) Shortness of breath: (6) Bicuspid aortic valve: (7) Severe aortic stenosis: (8) Acute heart failure with preserved ejection fraction: Plan per admitting service notes with addendum: 56 year old presents with SOB and fatigue that has been going on x a few days. Continuing PMH DM2 and HLD. CXR vascular congestion. Chest CTA negative for PE, but pleural effusions. Mild Tropnin bump, audible murmur. Will obtain fatigue lab work up, ECHO, repeat EKG and specialist consult as necessary. HFpEF: Severe Aortic Stenosis: ECHO EF 60-65%, severe , no pericardial effusion Cardiology consult placed -- continue IV lasix -- Cardiac cath on Friday SOB: Fatigue: Started this AM at 0700; neb tx x1 in ED administered; SOB resolved Grade IV/ LSB murmur auscultated Chest Xray: Cardiomegaly with pulmonary vascular congestion and reticular interstitial opacities suggestive of pulmonary edema. Interstitial pneumonia could appear similarly. Chest CTA: Cardiomegaly with interstitial pulmonary edema, pleural effusions with dependent bibasilar consolidation suggestive of compressive atelectasis, Negative for PE. Trop 21.3; repeat x1 17.0 No leukocytosis or electrolyte abnormalities; will check Phos EKG tachycardic with ? septal infarct. No comparison. Repeat in AM or PRN -- secondary to above HLD: 01/2022: TG 2001, HDL 51, LDL 76 Repeat Lipid panel TG 115, LDL 52, HDL 53 Takes Atorvastatin; continue DM2: 01/2022: A1C 14; recheck today 6.6 Takes Trulicity and Metformin; Hold while here and place on FSBS ACHS SSI while inpt Disposition: PCP: Dr. Soares Code Status: Full Code VTe Prophylaxis: Lovenox SQ anticipate d/c home when medically stable plan of care discussed with patient in detail and at length all questions answered he is understanding, agreeable, comfortable with the plan of care Admission and Anticipated Discharge Date Admission Date: July 05, 2022 Subjective ff up for severe aortic stenosis, etc seen resting in bed, comfortable in good spirits states he feels fine overall dyspnea on exertion seems to be improving no chest pain, palpitations, dizziness no fever/chills no abdominal pain, nausea/vomiting, etc no other symptoms Review of Systems Review of Systems: all noted and negative except for above Physical Exam Physical Exam: General- oriented x 3, not in distress, speaks in sentences with no effort or accessory muscle use Eyes- anicteric Neck- no JVD Lungs- mild rales at the bases no wheezing Heart- normal rate, regular rhythm; no murmurs Abdomen- normal bowel sounds, nondistended, soft, nontender Extremities- no pretibial edema, no calf tenderness Neuro- alert, oriented x 3; no gross focal neurologic deficits Skin- warm & dry Results & Data Results & Data Vital Signs (Past 12 Hours) Vital Signs Temp Pulse Pulse Resp BP Pulse Ox O2 Del Method 07/06/22 16:00 37 C 96 H 18 124/77 96 Room Air 07/06/22 11:31 36.9 C 96 H 18 126/88 97 Room Air 07/06/22 10:55 Room Air 07/06/22 07:37 36.4 C L 102 H 18 129/77 94 Room Air all noted and reviewed including below
--- NOTE | 2022-07-06 19:52 | Ultrasound Report ---
US carotid doppler BI CLINICAL HISTORY: 56 years-old Male with Severe arctic stenosis, preoperative evaluation. COMPARISON: None TECHNIQUE: Multiple real time sonographic images of the carotid bifurcations were obtained assessing spence scale, color Doppler and spectral wave form appearance FINDINGS: RIGHT CAROTID: The peak systolic velocity measured within the right ICA is 57 cm/sec. The end diast olic velocity measured 29 cm/sec. The ICA to CCA ratio measured 0.5 which correlates with a stenosis of 0-50%. Mild atherosclerotic plaque. LEFT CAROTID: The peak systolic velocity measured within the left ICA is 45 cm/sec. The end diastol ic velocity measured 21 cm/sec. The ICA to CCA ratio measured 0.66 which correlates with a stenosis o f 0-50%. Mild atherosclerotic plaque. There is normal antegrade vertebral flow bilaterally. IMPRESSION: 1. No hemodynamically significant stenosis. 2. Normal antegrade vertebral flow bilaterally. ACT 112: Negative or not required by law. The above report was generated using voice recognition software. It may contain grammatical, syntax o r spelling errors. Electronically signed by: Irvin Dong M.D. 07/06/2022 7:51 PM
[2022-07-06] MEDS: METOPROLOL TARTRATE 25 MG TAB PO SCH (21:08)
[2022-07-06] MEDS: ATORVASTATIN 20 MG TAB PO SCH (21:09)
[2022-07-07] MEDS: METOPROLOL TARTRATE 25 MG TAB PO SCH ×2 (08:25→20:36)
[2022-07-07] MEDS: INSULIN ASPART PER UNIT CHARGE SC SCH ×4 (08:34→20:36)
[2022-07-07] MEDS ORDERED: LANTUS PER UNIT CHARGE SC SCH (09:00)
[2022-07-07 09:21] LABS: BUN Creatinine Ratio 29.1 (10-20); Calcium 9.5 mg/dl (8.6-10.3); Creatinine Clr Calc Pharmacy 179.3 ml/min; Est GFR (Non-African American) 117.3 ml/min; Potassium 4.1 mmol/L (3.5-5.1)
[2022-07-07] MEDS: ENOXAPARIN INJ 40 MG/0.4 ML SYR SQ SCH (10:28)
--- NOTE | 2022-07-07 11:28 | Cardiology Progress Note ---
Date of Service July 07, 2022 Assessment & Plan (1) Severe aortic stenosis: (2) Acute heart failure with preserved ejection fraction: (3) Bicuspid aortic valve: (4) Pleural effusion: (5) HLD (hyperlipidemia): (6) DM2 (diabetes mellitus, type 2): Plan 56-year-old male admitted with acute decompensated heart failure. Echocardiogram demonstrating preserved LV systolic function with severe aortic stenosis and a bicuspid aortic valve (new diagnosis). lacement options including SAVR with bioprosthetic valve, SAVR with mechanical prosthesis, and TAVR. All questions answered to patient's satisfaction. He is agreeable to remain hospitalized for further medical treatment and evaluation of his valvular heart disease. 07/06/2022 Patient clinically improved with gentle diuresis. We will add low-dose beta- boni for heart rate control Carotid duplex to be ordered as part of preoperative assessment with anticipated need for aortic valve replacement Tentative plans for diagnostic coronary angiography Friday07/07/2022 Continued improvement. No cardiac complaints. Carotid duplex without obstruction Tolerating beta-bnoi with good heart rate and blood pressure control. Good diuresis with furosemide on hold Plan coronary angiography 07/08/2022 Begin hydration 0600 N.p.o. after midnight except for sips until morning Procedure and risk discussed in detail with patient Admission and Anticipated Discharge Date Admission Date: July 05, 2022 Subjective Patient seen and examined, chart, medications, telemetry were reviewed Patient feels well this morning ambulatory in room. No chest pains worsening shortness of breath orthopnea. Blood pressure and heart rate trending towards better control No fevers or chills No arrhythmias on telemetry Weight down 4 kg from admission Review of Systems Review of Systems: All systems reviewed & are unremarkable except as noted in Subjective Physical Exam Constitutional: well nourished and + ill appearing; no acute distress ENMT: external ear and nose normal, oropharynx normal Neck: trachea midline, no thyromegaly Respiratory: able to speak in complete sentences (+ Conversational dyspnea) and + tachypneic; no respiratory distress Auscultation: + diminished lung sounds (Left base) and + rales (Few); no rhonchi and no wheezes Cardiovascular: Rate/Rhythm: regular rate and regular rhythm Heart Sounds: normal S1 and + murmur (3/6 high-pitched, late peaking, systolic ejection); + abnormal S2 (Diminished) Vessels: radial pulses present; no JVD and no carotid bruit Extremities: + edema (Trace) Gastrointestinal (Abdomen): Inspection/Auscultation: normal bowel sounds; abdomen not distended Percussion/Palpation: abdomen soft; abdomen nontender, no guarding and abdomen not rigid Neurologic: CN's II-XI intact bilaterally and moves all extremities; no focal motor deficits Psychiatric: A+Ox3, euthymic affect Results & Data Vital Signs (Past 12 Hours) Vital Signs Temp Pulse Pulse Pulse Resp BP Pulse Ox 07/07/22 07:47 80 07/07/22 07:46 36.7 C 91 H 18 117/76 97 07/07/22 02:38 36.5 C 84 16 125/86 97 O2 Del Method 07/07/22 07:47 07/07/22 07:46 Room Air 07/07/22 02:38 Room Air Laboratory Results Laboratory Results - last 24 hr 07/06/22 07/06/22 07/06/22 11:44 17:37 20:14 Sodium Potassium Chloride Carbon Dioxide Anion Gap BUN Creatinine Est Cr Clr Drug Dosing Est GFR ( Amer) Est GFR (Non-Af Amer) BUN/Creatinine Ratio Glucose POC Glucose 108 H 112 H 165 H Calcium 07/07/22 07/07/22 07:45 08:48 Sodium 137 Potassium 4.1 Chloride 101 Carbon Dioxide 29 Anion Gap 7 BUN 16 Creatinine 0.55 L Est Cr Clr Drug Dosing 179.3 Est GFR ( Amer) 136.0 Est GFR (Non-Af Amer) 117.3 BUN/Creatinine Ratio 29.1 H Glucose 164 H POC Glucose 131 H Calcium 9.5 Diagnostic Findings Carotid duplex without obstruction
--- NOTE | 2022-07-07 14:20 | Electrocardiogram Report ---
Test Reason : Blood Pressure : / mmHG Vent. Rate : 085 BPM Atrial Rate : 085 BPM P-R Int : 160 ms QRS Dur : 090 ms QT Int : 406 ms P-R-T Axes : 058 022 043 degrees QTc Int : 483 ms Normal sinus rhythm Prolonged QT Abnormal ECG When compared with ECG of 06-JUL-2022 05:57, No significant change was found Confirmed by Job Castellon ([id number]) on 07/07/2022 2:19:54 PM Referred By: REFERRED SELF Confirmed By:Job Castellon
--- NOTE | 2022-07-07 16:37 | Hospitalist Progress Note ---
Date of Service July 07, 2022 Assessment & Plan (1) Fatigue: (2) HLD (hyperlipidemia): (3) DM2 (diabetes mellitus, type 2): (4) Pleural effusion: (5) Shortness of breath: (6) Bicuspid aortic valve: (7) Severe aortic stenosis: (8) Acute heart failure with preserved ejection fraction: Plan: 56 year old presents with SOB and fatigue that has been going on x a few days. Continuing PMH DM2 and HLD. CXR vascular congestion. Chest CTA negative for PE, but pleural effusions. Mild Tropnin bump, audible murmur. Will obtain fatigue lab work up, ECHO, repeat EKG and specialist consult as necessary. HFpEF: Severe Aortic Stenosis: ECHO EF 60-65%, severe , no pericardial effusion Cardiology consult placed -- hold Lasix, patient euvolemic already tolerating Metoprolol -- Cardiac cath tomorrow SOB: Fatigue: Started this AM at 0700; neb tx x1 in ED administered; SOB resolved Grade IV/ LSB murmur auscultated Chest Xray: Cardiomegaly with pulmonary vascular congestion and reticular interstitial opacities suggestive of pulmonary edema. Interstitial pneumonia could appear similarly. Chest CTA: Cardiomegaly with interstitial pulmonary edema, pleural effusions with dependent bibasilar consolidation suggestive of compressive atelectasis, Negative for PE. Trop 21.3; repeat x1 17.0 No leukocytosis or electrolyte abnormalities; will check Phos EKG tachycardic with ? septal infarct. No comparison. Repeat in AM or PRN -- secondary to above -- resolved HLD: 01/2022: TG 2001, HDL 51, LDL 76 Repeat Lipid panel TG 115, LDL 52, HDL 53 Takes Atorvastatin; continue DM2: 01/2022: A1C 14; recheck today 6.6 Takes Trulicity and Metformin; Hold while here and place on FSBS ACHS SSI while inpt Disposition: PCP: Dr. Soares Code Status: Full Code VTe Prophylaxis: Lovenox SQ anticipate d/c home when medically stable plan of care discussed with patient all questions answered he is understanding, agreeable, comfortable with the plan of care Admission and Anticipated Discharge Date Admission Date: July 05, 2022 Subjective ff up for severe aortic stenosis, etc seen resting in bed, comfortable in good spirits dyspnea resolved no chest pain, palpitations, dizziness no other new symptoms Review of Systems Review of Systems: all noted and negative except for above Physical Exam Physical Exam: General- oriented x 3, not in distress, speaks in sentences with no effort or accessory muscle use Eyes- anicteric Neck- no JVD Lungs- clear breath sounds bilaterally, no rales/wheezes Heart- normal rate, regular rhythm; grade 3 HS murmur Abdomen- normal bowel sounds, nondistended, soft, nontender Extremities- no pretibial edema, no calf tenderness Neuro- alert, oriented x 3; no gross focal neurologic deficits Skin- warm & dry Results & Data Results & Data Vital Signs (Past 12 Hours) Vital Signs Temp Pulse Pulse Resp BP Pulse Ox O2 Del Method 07/07/22 15:53 99 H 07/07/22 15:39 36.9 C 93 H 18 111/70 98 Room Air 07/07/22 12:01 36.7 C 92 H 18 121/82 96 Room Air 07/07/22 07:47 80 07/07/22 07:46 36.7 C 91 H 18 117/76 97 Room Air all noted and reviewed including below
[2022-07-07] MEDS: ATORVASTATIN 20 MG TAB PO SCH (20:35)
[2022-07-08] MEDS ORDERED: SODIUM CHLORIDE 0.9% 1000ML 1,000 ML IV SCH (06:00)
[2022-07-08] MEDS ORDERED: MAGNESIUM SULFATE / D5W 1 GM/100 ML BAG IV ONE (06:04)
[2022-07-08] MEDS ORDERED: METOPROLOL TARTRATE 25 MG TAB PO SCH (06:05)
[2022-07-08] MEDS ORDERED: LIDOCAINE 1% LOCAL 20 ML VIAL ONE (07:09)
[2022-07-08 08:28] LABS: BUN Creatinine Ratio 28.1 (10-20); Calcium 9.2 mg/dl (8.6-10.3); Creatinine Clr Calc Pharmacy 154.1 ml/min; Est GFR (African American) 127.8 ml/min; Est GFR (Non-African American) 110.2 ml/min; Magnesium 2.5 mg/dl (1.7-2.4); Potassium 4.4 mmol/L (3.5-5.1)
[2022-07-08] MEDS ORDERED: LANTUS PER UNIT CHARGE SC ONE (09:00)
[2022-07-08] MEDS: INSULIN ASPART PER UNIT CHARGE SC SCH ×3 (09:15→17:41)
--- NOTE | 2022-07-08 12:15 | Hospitalist Progress Note ---
Date of Service July 08, 2022 Assessment & Plan (1) Fatigue: (2) HLD (hyperlipidemia): (3) DM2 (diabetes mellitus, type 2): (4) Pleural effusion: (5) Shortness of breath: (6) Bicuspid aortic valve: (7) Severe aortic stenosis: (8) Acute heart failure with preserved ejection fraction: Plan: 56 year old presents with SOB and fatigue that has been going on x a few days. Continuing PMH DM2 and HLD. CXR vascular congestion. Chest CTA negative for PE, but pleural effusions. Mild Tropnin bump, audible murmur. Will obtain fatigue lab work up, ECHO, repeat EKG and specialist consult as necessary. 07/08/2022 Clinically improved congestive heart failure. Severe aortic stenosis present Tolerating low-dose beta-boni would not increase Underwent diagnostic cardiac catheterization today with normal coronaries Plan: Patient requesting discharge to home. Would release on metoprolol tartrate 12.5 mg twice per day, furosemide 20 mg p.o. daily in addition to usual medications. Do not restart metformin for 3 days BMP 1 week Discussed in detail with patient no strenuous activity. CHF instructions Cardiovascular surgery [facility] contacted will be arranging follow-up Cardiology follow-up 4 weeks HFpEF: Severe Aortic Stenosis, New Diagnosis: ECHO EF 60-65%, severe , no pericardial effusion Cardiology consult placed -- given IV Lasix -- s/p Cardiac cath: normal coronaries -- discharge plan: Metoprolol tartrate 12.5 mg twice per day, furosemide 20 mg p.o. daily in addition to usual medications Cardiovascular surgery [facility] contacted will be arranging follow-up Cardiology follow-up 4 weeks SOB: Fatigue: Started this AM at 0700; neb tx x1 in ED administered; SOB resolved Grade IV/ LSB murmur auscultated Chest Xray: Cardiomegaly with pulmonary vascular congestion and reticular interstitial opacities suggestive of pulmonary edema. Interstitial pneumonia could appear similarly. Chest CTA: Cardiomegaly with interstitial pulmonary edema, pleural effusions with dependent bibasilar consolidation suggestive of compressive atelectasis, Negative for PE. Trop 21.3; repeat x1 17.0 -- secondary to above -- resolved HLD: 01/2022: TG 2001, HDL 51, LDL 76 Repeat Lipid panel TG 115, LDL 52, HDL 53 Takes Atorvastatin; continue DM2: 01/2022: A1C 14; recheck today 6.6 Takes Trulicity and Metformin hold Metformin x 3 days post discharge Disposition ff up with PCP in 1 week Cardiology ff up per #1 Admission and Anticipated Discharge Date Admission Date: July 05, 2022 Subjective ff up for severe aortic stenosis, etc seen resting in bed, comfortable in good spirits states he feels fine overall no chest pain, dyspnea, palpitations, dizziness no other new symptoms Review of Systems Review of Systems: all noted and negative except for above Physical Exam Physical Exam: General- oriented x 3, not in distress, speaks in sentences with no effort or accessory muscle use Eyes- anicteric Neck- no JVD Lungs- clear breath sounds bilaterally Heart- normal rate, regular rhythm; no murmurs Abdomen- normal bowel sounds, nondistended, soft, nontender Extremities- no pretibial edema, no calf tenderness Neuro- alert, oriented x 3; no gross focal neurologic deficits Skin- warm & dry Results & Data Results & Data Vital Signs (Past 12 Hours) Vital Signs Temp Pulse Pulse Pulse Resp BP Pulse Ox 07/08/22 11:27 37.0 C 90 18 112/79 95 07/08/22 07:52 36.5 C 84 18 111/73 95 07/08/22 07:00 86 07/08/22 03:03 36.5 C 92 H 18 116/74 92 O2 Del Method 07/08/22 11:27 Room Air 07/08/22 07:52 Room Air 07/08/22 07:00 07/08/22 03:03 Room Air all noted and reviewed including below
[2022-07-08] MEDS ORDERED: ASPIRIN 81 MG CHEW ONE (12:17)
--- NOTE | 2022-07-08 12:19 | Pre Anesthesia Assessment ---
Date of Service July 08, 2022 Pre Sedation Assessment Vital Signs Temp Pulse Pulse Pulse Resp BP Pulse Ox 07/08/22 11:27 37.0 C 90 18 112/79 95 07/08/22 07:52 36.5 C 84 18 111/73 95 07/08/22 07:00 86 07/08/22 03:03 36.5 C 92 H 18 116/74 92 07/07/22 22:03 88 07/07/22 23:00 36.4 C L 88 18 115/79 96 07/07/22 19:57 36.8 C 91 H 18 129/92 97 07/07/22 15:53 99 H 07/07/22 15:39 36.9 C 93 H 18 111/70 98 O2 Del Method 07/08/22 11:27 Room Air 07/08/22 07:52 Room Air 07/08/22 07:00 07/08/22 03:03 Room Air 07/07/22 22:03 07/07/22 23:00 Room Air 07/07/22 19:57 Room Air 07/07/22 15:53 07/07/22 15:39 Room Air Cardiovascular + regular rate and + regular rhythm + murmur no JVD no edema Respiratory normal respiratory effort, lungs clear to auscultation Pre-Sedation Airway Assessment Smoking Status: Never smoker Hx Sleep Apnea: No Short, Thick Neck: No Thyromental Distance: > or= 3.5 Finger Breadths Oral Cavity: + WNL Mallampati Class: III ASA: ASA3 NPO Status Date of Last Intake of Fluids: 07/07/22 Date of Last Intake of Solid Food: 07/07/22 Procedure Planning Contraindications for Sedation: none Current Medications Reviewed: Yes Notes The planned sedation has been discussed with the patient. Informed Consent was obtained. I have identified the patient, determined the appropriateness of sedation and have assessed the patient immediately prior to the procedure. All medicine(s) and interventions are by my order.
[2022-07-08] MEDS ORDERED: MIDAZOLAM HCL 1 MG/ML 2ML VIAL ONE (12:24)
[2022-07-08] MEDS ORDERED: fentaNYL citrate PF 100 MCG/2 ML VIAL ONE (12:25)
[2022-07-08] MEDS ORDERED: niCARdipine HCL INJ 2.5 MG/ML 10 ML AMP ONE (12:25)
[2022-07-08] MEDS ORDERED: NITROGLYCERIN/D5W 100MCG/ML 20ML SYR ONE (12:25)
[2022-07-08] MEDS ORDERED: HEPARIN (PORCINE) 1000 UNIT/ML 10 ML (CATH LAB USE ONLY) ONE (12:25)
--- NOTE | 2022-07-08 13:04 | Cardiac Catheterization ---
Cardiac Cath Procedure Brief Procedure Date July 08, 2022 Pre-Procedure Diagnosis Pre-Procedure Diagnosis: Valvular Disease and CHF AUC Score AUC Score: 7 Post-Procedure Diagnosis Post-Procedure Diagnosis: Normal Coronary Arteries Procedure(s) Performed Procedure(s) Performed: Coronary Angiography Prize Jacker Gideon Silva MD Estimated Blood Loss Estimated Blood Loss: <15cc Medication(s) Medication(s): Fentanyl (12.5 mcg IV), Heparin (5000 units IV), Lidocaine 1% (Local infiltration access site), Nicardipine (250 mcg intra-arterial after arterial sheath insertion) and Versed (1 mg IV) Preliminary Findings Impression: Calcified aortic valve with restricted leaflet mobility on fluoroscopy Normal right dominant coronary anatomy Recommendations Recommendations: Valve Replacement Specimens Specimens: None Fluids (cc crystalloids) Fluids (cc crystalloids): 66 Anesthesia Start time: 1239, stop time: 1254 Procedural Complication(s) None Disposition PCU
--- NOTE | 2022-07-08 13:05 | Cardiac Catheterization ---
Cardiac Cath Procedure Full Procedure Date July 08, 2022 Pre-Procedure Diagnosis Pre-Procedure Diagnosis: Valvular Disease and CHF AUC Score AUC Score: 7 Post-Procedure Diagnosis Post-Procedure Diagnosis: Normal Coronary Arteries Procedure(s) Performed Procedure(s) Performed: Coronary Angiography Pull Socket Assembler Gideon Silva MD Finance Attorney(s) Keith Decker/Laura Harman Estimated Blood Loss Estimated Blood Loss: <15cc Medication(s) Medication(s): Fentanyl (12.5 mcg IV), Heparin (5000 units IV), Lidocaine 1% (Local infiltration access site), Nicardipine (250 mcg intra-arterial after arterial sheath insertion) and Versed (1 mg IV) Summary of Findings Impression: Calcified aortic valve with restricted leaflet mobility on fluoroscopy Essentially normal right dominant coronary anatomy. No obstructive disease Procedure: Coronary angiography via right radial access without difficulty Catheters: 6 Australian long glide radial sheath, 5 [place], 5 Australian JR 5 Complications: None Coronary angiography: Right dominant anatomy Left main: Long and free of disease Left anterior descending: Type III in distribution with 1 moderate caliber diagonal and 2 small diagonal branches in its midportion apical segment is thin in caliber but free of obstruction Left circumflex: Large caliber vessel giving rise to 2 obtuse marginal branches a trivial posterolateral branch there is no disease in the left circumflex Right coronary artery: Upward takeoff with florence's crook origin. Gives rise to 2 right ventricular branches in its midportion, and early takeoff posterior descending artery and 2 posterior ventricular branches. There is no disease of significance in the right coronary artery LV angiography: Not performed, aortic valve not crossed Hemodynamics Rest Ao:: 115/87/101 Final Ao: 112/89/107 LV: N/A Recommendations Recommendations: Valve Replacement Specimens Specimens: None Radiation Exposure (mGy) 1036 Contrast (mls) 60 Fluids (cc crystalloids) Fluids (cc crystalloids): 66 Anesthesia Start time: 1239, stop time: 1254 Procedural Complication(s) None Disposition PCU I attest to the content of the Intraoperative Record and any orders documented therein. Any exceptions are noted below. ACC Data: Dry Cell And Battery Assembler Cardiac Status Clinical evaluation leading to the procedure 56-year-old male presenting with symptoms of exertional dyspnea and congestive heart failure with echocardiography reflecting calcified bicuspid aortic valve with severe aortic stenosis surgical severity CAD Presenation: Stable angina Anginal Classification: CCS III Heart Failure: NYHA Class: CCS III Cardiogenic Shock within 24 Hours: No Cardiac Arrest within 24 Hours: No Imaging Studies Past 6 Months: Yes Stress Studies Past 6 Months: No Standard Exercise Test: No Stress Echocardiogram: No Stress Testing w/SPECT MPI: No Cardiac CTA: No Coronary Anatomy Dominant: Right Left Main (% Stenosis): Normal LAD (% Stenosis): Normal D1 (% Stenosis): Normal D2 (% Stenosis): Normal D3 (% Stenosis): Normal OM1 (% Stenosis): Normal OM2 (% Stenosis): Normal (Very large vessel) AM (% Stenosis): Normal (Trivial vessel) Left Ventricular Angiography EF (%): N/A Diagnostic Physicians Name: Gideon Silva MD Status: Urgent Closure Device Percutaneous Entry Location: Radial Closure Device: Radial Band Recommendations: Valve Replacement
--- NOTE | 2022-07-08 13:29 | Post Anesthesia Assessment ---
Date of Service July 08, 2022 Post Sedation Assessment Vital Signs Temp Pulse Pulse Pulse Resp BP Pulse Ox 07/08/22 13:15 94 H 16 114/82 96 07/08/22 13:05 16 L 69 16 113/53 L 96 07/08/22 11:27 37.0 C 90 18 112/79 95 07/08/22 07:52 36.5 C 84 18 111/73 95 07/08/22 07:00 86 07/08/22 03:03 36.5 C 92 H 18 116/74 92 07/07/22 22:03 88 07/07/22 23:00 36.4 C L 88 18 115/79 96 07/07/22 19:57 36.8 C 91 H 18 129/92 97 07/07/22 15:53 99 H 07/07/22 15:39 36.9 C 93 H 18 111/70 98 O2 Del Method 07/08/22 13:15 Room Air 07/08/22 13:05 Room Air 07/08/22 11:27 Room Air 07/08/22 07:52 Room Air 07/08/22 07:00 07/08/22 03:03 Room Air 07/07/22 22:03 07/07/22 23:00 Room Air 07/07/22 19:57 Room Air 07/07/22 15:53 07/07/22 15:39 Room Air Recovery Score Activity: Moves 4 extremities Respiration: Deep Breath/Cough Circulation: +/-20% PreAnes Value Consciousness: Fully Awake Oxygen Saturation: > 92% On Room Air Post Anesthesia Score: 10 Discharge Sedation Level of Care: Phase I Post Sedation Plan On clinical assessment, the patient appears to have tolerated the sedation without complications. Patient is recovering as anticipated. Patient will continue to be monitored by nursing and may be discharged when sedation discharge criteria are met per below protocol. Upon Completions of procedure up to 15 minutes continue every 5 minute vital signs and the P.A.R. score; then discharge to a Phase I or Fast Track to Phase II per the following guidelines: * Discharge Patient to appropriate Phase II area if PAR is 8 or greater or return to pre- procedure baseline. The post - procedure orders will be as directed. * If PAR score is less than 8 or not return to pre-procedure baseline then patient will follow Phase I monitoring till PAR is reached for Phase II. The Phase I may be done in procedure room or may call to secure a Phase I area. * If naloxone or flumazenil are used for reversal, hold in Phase I for continued monitoring from when last reversal dose was given for a minimum of 60 minutes or longer pending the nurse and/or physician discretion of patient condition before discharge to Phase II. Please call the Sedation Physician to re-evaluate and complete post-note for discharge to Phase II area. Do NOT discharge from procedure sedation or Phase 1 until post- sedation evaluation note is complete by procedure /sedation MD Sedation Discharge Instructions to be given to the patient at discharge to home.
--- NOTE | 2022-07-08 13:41 | Pharmacy Report ---
Pharmacy Glycemic Short Note 2 - Date of Service July 08, 2022 - Glycemic Short BSG Results (Last 24 hours): 07/07/22 07/07/22 07/08/22 16:49 19:58 05:53 Glucose POC Glucose 184 H 98 131 H 07/08/22 07/08/22 07/08/22 07:41 08:30 11:37 Glucose 130 H POC Glucose 131 H 125 H OUTPATIENT ANTIDIABETIC REGIMEN: * Trulicity 1.5 mg SC weekly (Friday) * Metformin 1000 mg PO BIDM HbA1c: 6.6% (07/05/22) ASSESSMENT: 07/08/22 * BSGs yesterday were 035-553-591-98 mg/dL. Patient received 25 units of insulin (10 units of basal and 15 units of bolus). * BSGs today are 131-12 mg/dL. Patient is NPO for cath. * For Lantus, will give 8 units today since patient NPO. Continue 10 units daily afterwards. * Continue Novolog BASELINE * GIANNA is a 56 year old male who presented to [place] ED on 07/05 with complaints of shortness of breath and fatigue secondary to acute decompensation of HF * Well-controlled T2DM with GLP-1 and metformin * Fasting BSG elevated at 194 mg/dL today (received only 5 units of rapid-acting insulin yesterday) * Will give conservative basal dose today in addition to Novolog PLAN FOR INPATIENT GLYCEMIC CONTROL: * Hold outpatient oral diabetes medications * Basal insulin * Lantus 10 units SC daily (8 units today since NPO) * Bolus insulin * NovoLog per scale ACHS or Q6hrs while NPO * Goal Range: Low 110 mg/dL - High 140 mg/dL * Correction Factor: 30 mg/dL/unit * Nutritional / Prandial insulin per carb ratio of 1 unit per 10 grams CHO consumed
--- NOTE | 2022-07-08 17:26 | Cardiology Progress Note ---
Date of Service July 08, 2022 Assessment & Plan (1) Severe aortic stenosis: (2) Acute heart failure with preserved ejection fraction: (3) Bicuspid aortic valve: (4) Pleural effusion: (5) HLD (hyperlipidemia): (6) DM2 (diabetes mellitus, type 2): Plan 56-year-old male admitted with acute decompensated heart failure. Echocardiogram demonstrating preserved LV systolic function with severe aortic stenosis and a bicuspid aortic valve (new diagnosis). lacement options including SAVR with bioprosthetic valve, SAVR with mechanical prosthesis, and TAVR. All questions answered to patient's satisfaction. He is agreeable to remain hospitalized for further medical treatment and evaluation of his valvular heart disease. 07/06/2022 Patient clinically improved with gentle diuresis. We will add low-dose beta- boni for heart rate control Carotid duplex to be ordered as part of preoperative assessment with anticipated need for aortic valve replacement Tentative plans for diagnostic coronary angiography Friday07/07/2022 Continued improvement. No cardiac complaints. Carotid duplex without obstruction Tolerating beta-boni with good heart rate and blood pressure control. Good diuresis with furosemide on hold Plan coronary angiography 07/08/2022 Begin hydration 0600 N.p.o. after midnight except for sips until morning Procedure and risk discussed in detail with patient 07/08/2022 Clinically improved congestive heart failure. Severe aortic stenosis present Tolerating low-dose beta-boni would not increase Underwent diagnostic cardiac catheterization today with normal coronaries Plan: Patient requesting discharge to home. Would release on metoprolol tartrate 12.5 mg twice per day, furosemide 20 mg p.o. daily in addition to usual medications. Do not restart metformin for 3 days BMP 1 week Discussed in detail with patient no strenuous activity. CHF instructions Cardiovascular surgery [facility] contacted will be arranging follow-up Cardiology follow-up 4 weeks Admission and Anticipated Discharge Date Admission Date: July 05, 2022 Subjective Patient seen and examined both pre and post cardiac catheterization today. Overall feels substantially improved since hospitalization. No chest pains. No dizziness or lightheadedness no syncope or near syncope. Telemetry 1 brief run of narrow complex tachycardia 15 beats this morning. No problems today. Tolerated cardiac catheterization well with study demonstrating normal coronaries Review of Systems Review of Systems: All systems reviewed & are unremarkable except as noted in Subjective Physical Exam Constitutional: well nourished and + obese; no acute distress Eyes: PERRL, conjunctivae normal, anicteric sclerae ENMT: Mallampati Class: III Neck: trachea midline, no thyromegaly Respiratory: normal respiratory effort, lungs clear to auscultation no respiratory distress Auscultation: no rhonchi and no wheezes Cardiovascular: Rate/Rhythm: regular rate and regular rhythm Heart Sounds: normal S1 and + murmur; + abnormal S2 (Diminished) Vessels: radial pulses pre sent; no JVD and no carotid bruit Extremities: no edema Gastrointestinal (Abdomen): Inspection/Auscultation: normal bowel sounds; abdomen not distended Percussion/Palpation: abdomen soft; abdomen nontender, no guarding and abdomen not rigid Neurologic: CN's II-XI intact bilaterally and moves all extremities; no focal motor deficits Psychiatric: A+Ox3, euthymic affect Results & Data Vital Signs (Past 12 Hours) Vital Signs Temp Pulse Pulse Pulse Resp BP Pulse Ox 07/08/22 15:28 96 H 07/08/22 16:22 36.9 C 91 H 16 127/76 94 07/08/22 16:02 36.8 C 87 14 115/80 95 07/08/22 15:44 36.7 C 88 14 128/86 97 07/08/22 14:38 36.7 C 88 16 131/85 97 07/08/22 14:00 84 16 114/78 96 07/08/22 13:45 85 16 115/79 96 07/08/22 13:30 88 16 126/89 96 07/08/22 13:15 94 H 16 114/82 96 07/08/22 13:05 16 L 69 16 113/53 L 96 07/08/22 11:27 37.0 C 90 18 112/79 95 07/08/22 07:52 36.5 C 84 18 111/73 95 07/08/22 07:00 86 O2 Del Method 07/08/22 15:28 07/08/22 16:22 Room Air 07/08/22 16:02 Room Air 07/08/22 15:44 Room Air 07/08/22 14:38 Room Air 07/08/22 14:00 Room Air 07/08/22 13:45 Room Air 07/08/22 13:30 Room Air 07/08/22 13:15 Room Air 07/08/22 13:05 Room Air 07/08/22 11:27 Room Air 07/08/22 07:52 Room Air 07/08/22 07:00 Laboratory Results Laboratory Results - last 24 hr 07/07/22 07/08/22 07/08/22 19:58 05:53 07:41 Sodium 138 Potassium 4.4 Chloride 102 Carbon Dioxide 31 Anion Gap 5 BUN 18 Creatinine 0.64 Est Cr Clr Drug Dosing 154.1 Est GFR ( Amer) 127.8 Est GFR (Non-Af Amer) 110.2 BUN/Creatinine Ratio 28.1 H Glucose 130 H POC Glucose 98 131 H Calcium 9.2 Magnesium 2.5 H 07/08/22 07/08/22 07/08/22 08:30 11:37 14:49 Sodium Potassium Chloride Carbon Dioxide Anion Gap BUN Creatinine Est Cr Clr Drug Dosing Est GFR ( Amer) Est GFR (Non-Af Amer) BUN/Creatinine Ratio Glucose POC Glucose 131 H 125 H 102 H Calcium Magnesium 07/08/22 16:39 Sodium Potassium Chloride Carbon Dioxide Anion Gap BUN Creatinine Est Cr Clr Drug Dosing Est GFR ( Amer) Est GFR (Non-Af Amer) BUN/Creatinine Ratio Glucose POC Glucose 138 H Calcium Magnesium
== END 2022-07-08 18:48 | disposition home or self-care (01) | DRG 287 ==
LOC: ED 08:17 → SUATTDRO 11:17 → 2N 11:17 → 4W 07-08 14:27
PROC: CLB.CCO (2022-07-08 11:00)
DX: E66.01 Morbid (severe) obesity due to excess calories; Z68.41 Body mass index [BMI] 40.0-44.9, adult; Z91.018 Allergy to other foods; E11.65 Type 2 diabetes mellitus with hyperglycemia; I50.33 Acute on chronic diastolic (congestive) heart failure; Z79.85 Long-term (current) use of injectable non-insulin antidiabetic drugs; Q23.1 Congenital insufficiency of aortic valve; E78.5 Hyperlipidemia, unspecified; Z79.84 Long term (current) use of oral hypoglycemic drugs; Q23.0 Congenital stenosis of aortic valve; Z79.899 Other long term (current) drug therapy